=== PATIENT | female | born 1970 | race Caucasian/White ===

== ENCOUNTER 2018-08-11 09:05 | Day surgery (SDC) | payer OTHER ==
[~2018-08-11] VITALS: Ht 167.6 cm; Wt 88.0 kg
[~2018-08-11 09:05] MED LIST: ASPI81CH PO; ATOR10 PO; FEXO180; FEXO180 PO; FLUSAL2505 INH; Flomax0.4 MG PO; HYDMOR2 PO; LABE100 PO; LEVSOD100 PO; LOSA50 PO; METADATE PO; METPHE20 PO; Norvasc2.5 MG PO; PROM25 PO; Percocet 5-3251 EACH PO; RITALIN LA; RITALIN PO; SYNTHROID; TAMS.4ER PO; Zofran Odt4 MG SL
--- NOTE | 2018-08-11 14:40 | NUR ---
I entered patient's room and found patient resting post-surgery. She quickly awoke at the sound of her name. She shared some concerns revolving around her spiritual growth and health spurred on by her medical issues. I listened empathically, explored her rastafarian beliefs, provided spiritual direction and provided prayer. Patient expressed gratitude for the visit and asked if I could return the following day.
--- NOTE | 2018-08-11 16:29 | NUR ---
PT ARRIVED FROM [facility] AT 1330 APROX. SHE IS AO X 4 ON ARRIVAL. 14ML AIR IN TR BAND SITE. SCANT AMOUNT OF FRESH BLOOD NOTED. TO TR SITE. SKIN FEELS HARD AND TIGHT. AND BOTH LOOKED AT SITE TODAY. NO NEW ORDERS RECEIVED. AT THIS TIME 3 ML AIR HAS BEEN REMOVED. NO NEW BLEEDING NOTED. PT HAS PLEASANT AFFECT AND IS UP TO BATHROOM WITH ONE PERSON SBA. VITAL SIGNS CHARTED. HEART RATE IS 77 AND NSR. PT DENIES ANY CP OR PRESSURE. WILL CONTINUE TO MONITOR CLOSELY.
--- NOTE | 2018-08-11 18:05 | NUR ---
END OF SHIFT; NO ACUTE CHANGES IN CONDITION NOTED FROM PREVIOUS NOTE. PT IS AO X 4. 5ML REMOVED FROM TR BAND AT THIS TIME. 9ML LEFT IN BAND. REMOVING SLOWLY PER PATIENT HAD [id number] UNITS OF HEPARIN IN PROCEDURE. PT COMPLAINS OF PAIN TO RIGHT ARM AND MANGO BOTH LOOKED AT SITE AND NO CONCERNS WERE NOTED. PT TO BE DISCHARGED IN EARLY AM PER WILL CONTINUE TO MONITOR THIS PATIENT CLOSELY UNTIL REPORT AND HAND OFF TO NOC SHIFT RN.
--- NOTE | 2018-08-11 20:15 | NUR ---
PM NOTE. ASSUMED CARE OF PT APROX 1900. PT IS A&Ox4 PLEASENT AND COOPERATIVE WITH CARE. PT IS S/P ANGIO W/TR BAND PLACED ON RIGHT WRIST. TELE INTACT, SR IN THE 80'S PER SOFTWARE ENGINEER KERNEL, PT'S BP 124/63. NO EDEMA PRESENT ON ASSESSMENT. L/S CLEAR T/O. BT PRESENT AND HYPERACTIVE. ABD IS SOFT AND NONTENDER TO PALP. PER REPORT FROM DAY SHIFT RN 14MLS OF AIR WAS PLACED IN TR BAND, OF 1844 7 MLS HAD BEEN REMOVED, WILL CONTINUE TO REMOVE AIR PER POLICY AND CLINICAL JUDGMENT. CALL LIGHT IN REACH, BED IS LOCKED AND LOW, WILL CONTINUE TO MONITOR.
[2018-08-12 03:53] LABS: Hematocrit 36.2 % (33.0-51.0); Hemoglobin 12.4 g/dL (11.5-16.0); Mean Corpuscular HGB 32.4 pg (26.0-34.0); Mean Corpuscular HGB Conc 34.3 g/dL (31.5-36.5); Mean Corpuscular Volume 95 fL (80-100); Mean Platelet Volume 10.1 fL (9.1-12.4); Platelet Count 213 K/mm3 (150-400); RDW Standard Deviation 41.4 fL (35.1-46.3); Red Blood Cell Count 3.83 M/mm3 (3.80-5.20); White Blood Cell Count 7.39 K/mm3 (4.00-11.30)
[2018-08-12 04:11] LABS: Anion Gap 6 mmol/L (6-16); Blood Urea Nitrogen 13 mg/dL (8-24); Bun/Creatinine Ratio 16.3 (12.0-20.0); CO2, Blood 26 mmol/L (21-32); Calcium, Blood 8.6 mg/dL (8.5-10.1); Chloride, Blood 109 mmol/L (98-108); Glomerular Filtration Rate >60 (60-); Glucose, Blood 106 mg/dL (70-99); Potassium, Blood 3.8 mmol/L (3.5-5.5); Sodium, Blood 141 mmol/L (136-145)
--- NOTE | 2018-08-12 04:35 | NUR ---
SHIFT SUMMARY. TR BAND WAS REMOVED AT 2345, AREA WAS GENTLY CLEANED WITH ALCHOL WIPE AND TEGADERM WAS PLACED OVER THE SITE. NO BLEEDING, REDNESS/SWELLING/HEMATOMA NOTED TO THE SITE. NO ACUTE CHANGES NOTED THIS SHIFT. PT'S VS HAVE BEEN STABLE. PT COMPLAINES OF "CHEST ACHE", NO EKG CHANGES NOTED, NO VS CHANGES. PT DENIES ANY N/V OR SOB. PT STATES PAIN DOES NOT RADIATE ANYWHERE ELSE. PT HAS BEEN IND TO THE BATHROOM, AND HAS BEEN ABLE TO TURN/REPOSITION HERSELF IN BED. CALL LIGHT IN REACH, BED IS LOCKED AND LOW, WILL CONTINUE TO MONITOR UNTIL REPORT IS GIVEN TO ONCOMING RN.
[2018-08-12] MEDS ORDERED: METO25 (11:28)
[2018-08-12] MEDS ORDERED: CLOP75 PO (11:55)
[2018-08-12] MEDS ORDERED: METO25ER PO (11:56)
== END 2018-08-12 12:34 | disposition home or self-care (01) ==
LOC: MHTC 09:05 → PCU 12:49 → MHTC 08-12 12:34
PROVIDERS: Emergency Medicine
DX: I25.9 Chronic ischemic heart disease, unspecified (principal); I25.119 Atherosclerotic heart disease of native coronary artery with unspecified angina pectoris; I10 Essential (primary) hypertension; E78.5 Hyperlipidemia, unspecified; Z88.2 Allergy status to sulfonamides; Z79.82 Long term (current) use of aspirin; Z88.1 Allergy status to other antibiotic agents
CPT/HCPCS: 36415; 80048; 85027; 85347; 93458; 93571; 94640; 94760; 99152; 99153; C1725; C1769; C1874; C1887; C1894; C9600; J1644; J1650; J2250; J3010; J7030; J7040; Q9967

== ENCOUNTER → 2018-10-27 | Outpatient (CLI) | payer OTHER ==
[~2018-10-27] MED LIST changes: +CLOP75 PO; +METO25; +METO25ER PO
[2018-10-27 17:31] LABS: Influenza A Negative (NEGATIVE); Influenza B Negative (NEGATIVE)
== END | disposition home or self-care (01) ==
LOC: LAB SHORT 16:39 → LAB 16:39
PROVIDERS: Nurse Practitioner Family
DX: R05 Cough (principal)
CPT/HCPCS: 87804

== ENCOUNTER → 2019-11-08 | Outpatient (CLI) | payer OTHER | END | disposition home or self-care (01) | LOC: LAB SHORT 15:02 → LAB 15:02 | DX: R30.0 Dysuria (principal); R35.0 Frequency of micturition | CPT/HCPCS: 87086 ==

== ENCOUNTER 2019-11-22 05:55 | Emergency (ER) | payer OTHER ==
[~2019-11-22] VITALS: Ht 165.1 cm; Wt 88.0 kg
[2019-11-22] MEDS ORDERED: AMLODIPINE BES2.5 MG PO (06:13)
[2019-11-22] MEDS ORDERED: Isosorbide Dinit5 MG PO (06:13)
[2019-11-22] MEDS ORDERED: RANOLAZINE ER500 M2 PO (06:13)
[2019-11-22 06:33] LABS: Hematocrit 36.8 % (33.0-51.0); Hemoglobin 12.6 g/dL (11.5-16.0); Mean Corpuscular HGB 33.2 pg (26.0-34.0); Mean Corpuscular HGB Conc 34.2 g/dL (31.5-36.5); Mean Corpuscular Volume 97 fL (80-100); Mean Platelet Volume 9.8 fL (9.1-12.4); Platelet Count 192 K/mm3 (150-400); RDW Standard Deviation 43.1 fL (35.1-46.3); Red Blood Cell Count 3.79 M/mm3 (3.80-5.20); White Blood Cell Count 2.75 K/mm3 (4.00-11.30)
[2019-11-22 06:39] LABS: Source, Urine Clean Catch
[2019-11-22 06:43] LABS: Albumin, Blood 3.9 g/dL (3.4-5.0); Albumin/Globulin Ratio 1.1 (0.8-1.8); Bilirubin, Total 1.2 mg/dL (0.1-1.0); Bun/Creatinine Ratio 16.4 (12.0-20.0); Calcium, Blood 8.8 mg/dL (8.5-10.1); Creatinine, Blood 1.22 mg/dL (0.40-1.00); Globulin, Blood 3.7 g/dL (2.2-4.0); Total Protein, Blood 7.6 g/dL (6.4-8.2)
[2019-11-22 06:49] LABS: Bilirubin, Urine Neg (Neg); Blood, Urine 4+ (Neg); Glucose Qualitative, Urine Neg (Neg); Ketones, Urine 1+ (Neg); Leukocyte Esterase, Urine 2+ (Neg); Nitrite, Urine Pos (Neg); Protein, Urine 1+ (Neg); Urobilinogen, Urine NORM (Normal)
[2019-11-22 06:58] LABS: BASOPHILS PERCENT MAN 0 % (0-2); EOSINOPHILS ABSOLUTE MAN 0.02 K/mm3 (0.00-0.68); EOSINOPHILS PERCENT MAN 1 % (0-6); LYMPHOCYTES % ATYPICAL MANUAL 1 % (0-0); LYMPHOCYTES ABSOLUTE MAN 0.46 K/mm3 (0.84-5.20); LYMPHOCYTES PERCENT MAN 16 % (21-46); MONOCYTES PERCENT MAN 0 % (4-13); NEUTROPHILS ABSOLUTE MAN 2.25 K/mm3 (1.96-9.15); SEG NEUTROPHILS PERCENT MAN 82 % (41-73); TOTAL CELLS COUNTED 100
[2019-11-22 07:08] LABS: Appearance, Urine Hazy (Clear); Color, Urine Yellow (P-Yellow)
[2019-11-22 07:09] LABS: Bacteria Many /hpf; Squamous Epithelial Cells Rare /hpf (Few); White Blood Cells, Urine 50-100 /hpf (0-5)
[2019-11-22 07:10] LABS: Mucus Light (0-Heavy)
== END 2019-11-22 08:38 | disposition home or self-care (01) ==
LOC: ER 05:55
PROVIDERS: Emergency Medicine
DX: N13.2 Hydronephrosis with renal and ureteral calculous obstruction (principal); N39.0 Urinary tract infection, site not specified; E86.0 Dehydration; H10.10 Acute atopic conjunctivitis, unspecified eye; M79.671 Pain in right foot; M79.672 Pain in left foot; G89.29 Other chronic pain; I10 Essential (primary) hypertension; Z88.0 Allergy status to penicillin; Z88.2 Allergy status to sulfonamides; Z88.8 Allergy status to other drugs, medicaments and biological substances; Z79.899 Other long term (current) drug therapy; Z79.82 Long term (current) use of aspirin; Z79.02 Long term (current) use of antithrombotics/antiplatelets
CPT/HCPCS: 36415; 74176; 80053; 81001; 83690; 85025; 87077; 87086; 87186; 96361; 96365; 96375; 99284-25; J0696; J1170; J2405; J7030; J7120

== ENCOUNTER 2020-12-19 20:33 | Emergency (ER) | payer OTHER ==
[~2020-12-19] VITALS: Ht 167.6 cm; Wt 93.9 kg
[~2020-12-19 20:33] MED LIST changes: +AMLODIPINE BES2.5 MG PO; +Isosorbide Dinit5 MG PO; +RANOLAZINE ER500 M2 PO
== END 2020-12-19 22:08 | disposition left against medical advice (07) ==
LOC: ER 20:33
DX: R09.89 Other specified symptoms and signs involving the circulatory and respiratory systems (principal); Z53.21 Procedure and treatment not carried out due to patient leaving prior to being seen by health care provider
CPT/HCPCS: 99283

== ENCOUNTER → 2021-04-10 | Outpatient (CLI) | payer OTHER | END | disposition home or self-care (01) | LOC: LAB SHORT 15:08 | DX: R30.0 Dysuria (principal) | CPT/HCPCS: 87086 ==

== ENCOUNTER 2021-08-22 07:20 | Emergency (ER) | payer OTHER ==
[~2021-08-22] VITALS: Ht 167.6 cm; Wt 90.7 kg
[~2021-08-22 07:20] MED LIST changes: -ONDA4ODT MM
[2021-08-22 07:52] LABS: BASOPHILS ABSOLUTE AUTO 0.01 K/mm3 (0.00-0.23); BASOPHILS PERCENT AUTO 0 % (0-2); EOSINOPHILS PERCENT AUTO 0 % (0-6); Hematocrit 38.4 % (33.0-51.0); Hemoglobin 13.6 g/dL (11.5-16.0); IMMATURE GRAN ABSOLUTE AUTO 0.02 K/mm3 (0.00-0.10); IMMATURE GRAN PERCENT AUTO 0 % (0-1); LYMPHOCYTES ABSOLUTE AUTO 1.01 K/mm3 (0.84-5.20); LYMPHOCYTES PERCENT AUTO 16 % (21-46); MONOCYTES PERCENT AUTO 8 % (4-13); Mean Corpuscular HGB 33.7 pg (26.0-34.0); Mean Corpuscular HGB Conc 35.4 g/dL (31.5-36.5); Mean Corpuscular Volume 95 fL (80-100); Mean Platelet Volume 9.8 fL (9.1-12.4); NEUTROPHILS ABSOLUTE AUTO 4.83 K/mm3 (1.96-9.15); NEUTROPHILS PERCENT AUTO 76 % (41-73); Platelet Count 179 K/mm3 (150-400); RDW Coefficient Variation 11.6 % (11.7-14.2); RDW Standard Deviation 40.7 fL (35.1-46.3); Red Blood Cell Count 4.04 M/mm3 (3.80-5.20); White Blood Cell Count 6.37 K/mm3 (4.00-11.30)
[2021-08-22 08:12] LABS: Source, Urine Clean Catch
[2021-08-22 08:16] LABS: Alanine Aminotransfer (ALT/SGP 36 U/L (12-78); Albumin, Blood 3.9 g/dL (3.4-5.0); Albumin/Globulin Ratio 1.1 (0.8-1.8); Alk Phos 70 U/L (50-136); Anion Gap 11 mmol/L (6-16); Aspartate Aminotrans (AST/SGOT 26 U/L (12-37); Bilirubin, Total 0.5 mg/dL (0.1-1.0); Blood Urea Nitrogen 8 mg/dL (8-24); Bun/Creatinine Ratio 9.9 (12.0-20.0); CO2, Blood 24 mmol/L (21-32); Chloride, Blood 104 mmol/L (98-108); Creatinine, Blood 0.81 mg/dL (0.40-1.00); Globulin, Blood 3.4 g/dL (2.2-4.0); Glomerular Filtration Rate >60 (60-); Glucose, Blood 130 mg/dL (70-99); Potassium, Blood 3.7 mmol/L (3.5-5.5); Sodium, Blood 139 mmol/L (136-145); Total Protein, Blood 7.3 g/dL (6.4-8.2)
[2021-08-22 08:24] LABS: Appearance, Urine Clear (Clear); Bilirubin, Urine Neg (Neg); Blood, Urine 2+ (Neg); Color, Urine Amber (P-Yellow); Glucose Qualitative, Urine Neg (Neg); Ketones, Urine Neg (Neg); Leukocyte Esterase, Urine 1+ (Neg); Nitrite, Urine Neg (Neg); Protein, Urine 1+ (Neg); Specific Gravity, Urine 1.015 (1.003-1.022); Urobilinogen, Urine 1+ (Normal)
[2021-08-22 08:46] LABS: Bacteria Few /hpf; Mucus Light (0-Heavy); Squamous Epithelial Cells Rare /hpf (Few)
[2021-08-22] MEDS ORDERED: ONDA4ODT MM (09:25)
== END 2021-08-22 09:50 | disposition home or self-care (01) ==
LOC: ER 07:20
PROVIDERS: Emergency Medicine
DX: K62.5 Hemorrhage of anus and rectum (principal); R11.2 Nausea with vomiting, unspecified; U07.1 COVID-19; I10 Essential (primary) hypertension; E03.9 Hypothyroidism, unspecified; Z88.2 Allergy status to sulfonamides; Z79.899 Other long term (current) drug therapy
CPT/HCPCS: 36415; 71046; 80053; 81001; 85025; 87086; 99285-25; J7120

== ENCOUNTER → 2021-08-22 | Outpatient (CLI) | payer OTHER ==
[~2021-08-22] MED LIST changes: +ONDA4ODT MM
[2021-08-22 17:14] LABS: Source, Urine Voided
[2021-08-22 18:26] LABS: Bacteria Rare /hpf; Mucus Light (0-Heavy); Red Blood Cells, Urine 0-2 /hpf (0-2); Squamous Epithelial Cells Rare /hpf (Few); White Blood Cells, Urine 0-2 /hpf (0-5)
[2021-08-22 20:47] LABS: Adenovirus F 40/41 Not Detected (NOT DETECT); Astrovirus Not Detected (NOT DETECT); Campylobacter Sp Not Detected (NOT DETECT); Cryptosporidium Not Detected (NOT DETECT); Cyclospora Cayetanensis Not Detected (NOT DETECT); E. Coli O157 Not Detected (NOT DETECT); Entamoeba Histolytica Not Detected (NOT DETECT); Enteroaggregative E. coli-EAEC Not Detected (NOT DETECT); Enteropathogenic E. coli-EPEC Not Detected (NOT DETECT); Enterotoxigenic E. coli-ETEC Not Detected (NOT DETECT); Giardia Lamblia Not Detected (NOT DETECT); Norovirus GI/GII Not Detected (NOT DETECT); Plesiomonas Shigelloides Not Detected (NOT DETECT); Rotavirus A Not Detected (NOT DETECT); Salmonella Sp Not Detected (NOT DETECT); Sapovirus Not Detected (NOT DETECT); Shiga Toxin-prod E. coli-STEC Not Detected (NOT DETECT); Shigella/Enteroin E. coli-EIEC Not Detected (NOT DETECT); Vibrio Cholerae Not Detected (NOT DETECT); Vibrio Sp Not Detected (NOT DETECT); Yersinia Enterocolitica Not Detected (NOT DETECT)
== END ==
LOC: LAB SHORT 17:12
PROVIDERS: Family Medicine
DX: R10.84 Generalized abdominal pain (principal); K62.5 Hemorrhage of anus and rectum
CPT/HCPCS: 0097U; 81015; 87086